=== PATIENT | female | born 1965 | race African-American/Black ===

== ENCOUNTER 2019-02-14 17:49 | Emergency (ER) | payer OTHER ==
[~2019-02-14] VITALS: Ht 165.1 cm; Wt 109.8 kg
[2019-02-14] MEDS ORDERED: CEFTRIAXONE SOD 1 GM VIAL IV ONE (19:45)
[2019-02-14] MEDS ORDERED: POTASSIUM CHLORIDE 20 MEQ TAB CR PO ONE (19:47)
--- NOTE | 2019-02-14 20:31 | Diagnostic Imaging Report ---
EXAM: CT of the abdomen and pelvis WITHOUT contrast HISTORY: Lower stomach pain, hematuria, dysuria COMPARISON: None available. TECHNIQUE: The abdomen and pelvis were scanned utilizing a multidetector helical scanner. Coronal and sagittal reformats are available. PROTOCOL: Renal colic IV CONTRAST: None, which limits sensitivity and specificity of evaluation of the soft tissues and vascular structures. ORAL CONTRAST: None, which limits sensitivity and specificity of evaluation of the bowel. RADIATION DOSE: Total DLP: 835.88 mGy*cm Estimated effective dose: (DLP x 0.015 x size factor) Dose modulation, iterative reconstruction, and/or weight based adjustment of the mA/kV was utilized to reduce the radiation dose to as low as reasonably achievable. COMPLICATIONS: None FINDINGS: LOWER THORAX: Mild bibasilar atelectasis, right greater than left. HEPATOBILIARY: No definite focal hepatic lesions. No biliary ductal dilatation. The gallbladder is unremarkable. SPLEEN: No splenomegaly. PANCREAS: No focal masses or ductal dilatation. ADRENALS: No adrenal nodule. KIDNEYS/URETERS: No hydronephrosis, stones, or solid mass lesion identified. A 2.9 cm fluid density near the inferior pole of the left kidney, compatible with a simple appearing cyst. PELVIC ORGANS/BLADDER: There are no bladder is partially decompressed, limiting evaluation. PERITONEUM / RETROPERITONEUM: No free air or fluid. Left pelvic fat stranding. GI TRACT: No bowel dilation. The appendix appears normal. Colonic diverticulosis along with focal wall thickening and adjacent fat stranding centered at the mid sigmoid colon. LYMPH NODES: No pathologically enlarged lymph nodes. Small nonspecific mesenteric lymph nodes. VESSELS: Appear unremarkable. BONES: No aggressive osseous lesion or acute fracture. SOFT TISSUES: Unremarkable. IMPRESSION: 1. Sigmoid diverticulitis. Recommend follow-up gastroenterology consultation after resolution of the acute process to discuss if colonoscopy is warranted for colon cancer screening. 2. An incidental 2.9 cm simple left renal cyst. Signed by: Amanda [email or web address].[email or web address]., M.M.M. on 02/14/2019 8:28 PM
[2019-02-14] MEDS ORDERED: METRONIDAZOLE 500MG/NS 100ML 100 ML IV ONE (21:00)
== END 2019-02-14 21:32 | disposition home or self-care (01) ==
LOC: FSED 17:49
DX: R30.0 Dysuria (principal); R10.33 Periumbilical pain; A08.4 Viral intestinal infection, unspecified; E86.0 Dehydration
CPT/HCPCS: 74176; 80053; 81003; 85025; 99284; J0696